=== PATIENT | female | born 1980 | race Caucasian/White ===

== ENCOUNTER 2016-09-28 19:18 | Emergency (ER) | payer OTHER ==
[2016-09-28 18:12] LABS: WBC (NOT ORDERED) (RFLEX) 0 (0-5)
[2016-09-28 18:17] LABS: BASOPHILS 0.3 %; BASOPHILS ABSOLUTE 0.02 10/3/uL (0.0-0.16); EOSINOPHILS 2.1 %; EOSINOPHILS ABSOLUTE 0.16 10/3/uL (0.0-0.53); ER CBC TAT 0 Hrs 05 Mins; HEMATOCRIT 43.8 % (36.0-48.0); HEMOGLOBIN 15.7 g/dL (12.0-16.0); IMMATURE GRANULOCYTES 0.3 %; IMMATURE GRANULOCYTES ABSOLUTE 0.02 10/3/uL (0.0-0.11); LYMPHOCYTES 35.9 %; LYMPHOCYTES ABSOLUTE 2.68 10/3/uL (0.67-4.30); MEAN CORPUS HGB CONC 35.8 g/dL (32.0-36.0); MEAN PLATELET VOLUME 10.1 fL (9.2-13.0); MONOCYTES 6.7 %; NEUTROPHILS 54.7 %; NEUTROPHILS ABSOLUTE 4.08 10/3/uL (2.02-8.40); PLATELET COUNT 229 10/3/uL (150-400); RBC DISTRIBUTION WIDTH 12.5 % (12.0-16.0); RED CELL COUNT 4.76 10/6/uL (4.0-5.6); WHITE BLOOD CELLS 7.5 10/3/uL (4.5-10.5)
[2016-09-28 18:18] LABS: MANUAL DIFF NO %
[2016-09-28 18:19] LABS: ASCORBIC ACID (UR NOT ORDER) NEG (NEG); BILIRUBIN, URINE NEGATIVE (NEG); ER URINALYSIS TAT 0 Hrs 08 Mins; KETONE, URINE NEGATIVE (NEG); LEUKOCYTE ESTERASE(NOT OR NEG (NEG); NITRITE (URINE) NEG (NEG)
[2016-09-28 18:26] LABS: INTERNATIONAL NORMAL RATI 1.1 UNITS (-); PARTIAL THROMBO TIME 30.4 SEC (22.5-37.2); PROTIME (NOT ORD) 14.3 SEC (12.0-14.5)
[2016-09-28 18:39] LABS: BUN (BLOOD UREA NITROGEN) 11 MG/DL (6-23); CALCIUM, SERUM 8.9 MG/DL (8.5-10.4); CHEST PAIN PROFILE TAT 0 Hrs 27 Mins; CHLORIDE, SERUM 106 MMOL/L (96-112); CREATININE 0.75 MG/DL (0.55-1.02); GFR AFRICAN AMERICAN 120 ML/MIN (>=60); GFR NON AFRICAN AMERICAN 103 ML/MIN (>=60); GLUCOSE, SERUM 101 MG/DL (60-99); POTASSIUM, SERUM 3.7 MMOL/L (3.5-5.3); SODIUM, SERUM 141 MMOL/L (135-148); TROPONIN I <0.02 NG/ML (<0.05)
[2016-09-28 18:40] LABS: CO2 (CARBON DIOXIDE) 31 MMOL/L (24-34); ULTRASENSITIVE TSH 0.068 MCIU/ML (0.358-3.740)
== END 2016-09-28 19:30 | disposition left against medical advice (07) ==
LOC: ER 19:18
PROVIDERS: Emergency Medicine; Physician Assistant Medical
DX: Z53.21 Procedure and treatment not carried out due to patient leaving prior to being seen by health care provider (principal)
CPT/HCPCS: 80048; 81001; 83735; 84443; 84484; 84703; 85025; 85610; 85730; 93005

== ENCOUNTER 2016-12-15 14:24 | Emergency (ER) | payer OTHER ==
[2016-12-15 13:05] LABS: BASOPHILS 0.3 %; BASOPHILS ABSOLUTE 0.02 10/3/uL (0.0-0.16); EOSINOPHILS 2.9 %; ER CBC TAT 0 Hrs 08 Mins; HEMATOCRIT 42.9 % (36.0-48.0); HEMOGLOBIN 15.1 g/dL (12.0-16.0); IMMATURE GRANULOCYTES 0.1 %; IMMATURE GRANULOCYTES ABSOLUTE 0.01 10/3/uL (0.0-0.11); LYMPHOCYTES 24.1 %; LYMPHOCYTES ABSOLUTE 1.66 10/3/uL (0.67-4.30); MEAN CORPUS HGB CONC 35.2 g/dL (32.0-36.0); MEAN CORPUSCULAR HEMOGLOB 31.9 pg (26.0-34.0); MEAN CORPUSCULAR VOLUME 90.7 fL (80-100); MEAN PLATELET VOLUME 10.1 fL (9.2-13.0); MONOCYTES 6.7 %; MONOCYTES ABSOLUTE 0.46 10/3/uL (0.21-1.20); NEUTROPHILS 65.9 %; NEUTROPHILS ABSOLUTE 4.53 10/3/uL (2.02-8.40); PLATELET COUNT 213 10/3/uL (150-400); RBC DISTRIBUTION WIDTH 12.2 % (12.0-16.0); RED CELL COUNT 4.73 10/6/uL (4.0-5.6); WHITE BLOOD CELLS 6.9 10/3/uL (4.5-10.5)
[2016-12-15 13:06] LABS: MANUAL DIFF NO %
[2016-12-15 13:12] LABS: ASCORBIC ACID (UR NOT ORDER) NEG (NEG); BILIRUBIN, URINE NEGATIVE (NEG); ER URINALYSIS TAT 0 Hrs 15 Mins; KETONE, URINE NEGATIVE (NEG); LEUKOCYTE ESTERASE(NOT OR NEG (NEG); NITRITE (URINE) NEG (NEG); WBC (NOT ORDERED) (RFLEX) 1 (0-5)
[2016-12-15 13:14] LABS: PARTIAL THROMBO TIME 29.2 SEC (22.5-37.2); PROTIME (NOT ORD) 13.2 SEC (12.0-14.5)
[2016-12-15 13:21] LABS: A/G RATIO 1.1 (0.7-1.9); ALBUMIN 3.4 G/DL (3.5-5.0); ALKALINE PHOSPHATASE 56 U/L (45-117); BUN (BLOOD UREA NITROGEN) 11 MG/DL (6-23); CALCIUM, SERUM 8.7 MG/DL (8.5-10.4); CHLORIDE, SERUM 109 MMOL/L (96-112); CO2 (CARBON DIOXIDE) 25 MMOL/L (24-34); CREATININE 0.68 MG/DL (0.55-1.02); GFR AFRICAN AMERICAN 131 ML/MIN (>=60); GFR NON AFRICAN AMERICAN 113 ML/MIN (>=60); GLOBULIN 3.2 G/DL (2.5-4.1); GLUCOSE, SERUM 109 MG/DL (60-99); POTASSIUM, SERUM 4.2 MMOL/L (3.5-5.3); SGOT(AST) 27 U/L (5-40); SGPT(ALT) 41 U/L (5-65); SODIUM, SERUM 141 MMOL/L (135-148); TOTAL BILIRUBIN 0.7 MG/DL (0-1.2); TOTAL PROTEIN 6.6 G/DL (6.0-8.5)
== END 2016-12-15 15:00 | disposition home or self-care (01) ==
LOC: ER 14:24
PROVIDERS: Nurse Practitioner Family
DX: M54.5 Low back pain (principal); F17.200 Nicotine dependence, unspecified, uncomplicated; Z86.73 Personal history of transient ischemic attack (TIA), and cerebral infarction without residual deficits; F31.9 Bipolar disorder, unspecified; Z85.850 Personal history of malignant neoplasm of thyroid; Z90.49 Acquired absence of other specified parts of digestive tract; Z90.710 Acquired absence of both cervix and uterus; Z88.0 Allergy status to penicillin; Z88.8 Allergy status to other drugs, medicaments and biological substances
CPT/HCPCS: 72131; 80053; 81001; 85025; 85610; 85730; 96374; 96375; 99284; J2405